=== PATIENT | female | born 1990 | race Caucasian/White ===

== ENCOUNTER 2016-08-31 01:42 | Emergency (ER) | payer OTHER ==
[~2016-08-31] VITALS: Ht 162.6 cm; Wt 172.7 kg
[~2016-08-31 01:42] MED LIST: ALBU8HFA IH; ALBU8HFA4 IH; CETI-260 PO; MONT10TA21 PO; OMEP10 PO
[2016-08-31] MEDS ORDERED: TIOT185 IH (01:52)
[2016-08-31] MEDS ORDERED: AUD NEB (01:52)
[2016-08-31] MEDS ORDERED: MOME13HF IH (01:52)
[2016-08-31] MEDS ORDERED: ALBUTEROL SULFATE 2.5 MG/0.5 ML NEB SOLUTION NEB ONE (03:15)
[2016-08-31] MEDS ORDERED: LORazepam 2 MG TABLET PO ONE (03:15)
[2016-08-31] MEDS ORDERED: IPRATROPIUM BROMIDE 0.5 MG/2.5 ML NEB SOLUTION NEB ONE (03:15)
[2016-08-31 03:26] VITALS: BP 140/85
== END 2016-08-31 03:50 | disposition home or self-care (01) ==
LOC: EMS 01:43
DX: J45.909 Unspecified asthma, uncomplicated (principal); F41.9 Anxiety disorder, unspecified
CPT/HCPCS: 94640; 99283; J7613

== ENCOUNTER 2016-12-04 06:50 | Emergency (ER) | payer OTHER ==
[~2016-12-04] VITALS: Ht 162.6 cm; Wt 172.7 kg
[~2016-12-04 06:50] MED LIST changes: -ALBU8HFA IH; +AUD NEB; +MOME13HF IH; +TIOT185 IH
[2016-12-04 07:06] VITALS: BP 128/83
== END 2016-12-04 07:32 | disposition home or self-care (01) ==
LOC: EMS 06:51
DX: J45.909 Unspecified asthma, uncomplicated (principal); H66.91 Otitis media, unspecified, right ear
CPT/HCPCS: 99283

== ENCOUNTER 2016-12-06 01:21 | Emergency (ER) | payer OTHER ==
[~2016-12-06] VITALS: Ht 162.6 cm; Wt 172.0 kg
[2016-12-06] MEDS ORDERED: IPRATROPIUM BROMIDE 0.5 MG/2.5 ML NEB SOLUTION NEB ONE ×2 (01:30→02:00)
[2016-12-06] MEDS ORDERED: AMOX500T2 PO (01:30)
[2016-12-06] MEDS ORDERED: ALBUTEROL SULFATE 2.5 MG/0.5 ML NEB SOLUTION NEB ONE (01:30)
[2016-12-06] MEDS ORDERED: ALBUTEROL SULFATE 5 MG/ML 20 ML NEB SOLN [BULK] NEB ONE (02:00)
[2016-12-06] MEDS ORDERED: MethylPREDNISolone SOD SUCC 125 MG/2 ML VIAL IM ONE (02:00)
[2016-12-06] MEDS ORDERED: ACETAMINOPHEN 500 MG TABLET PO ONE (02:00)
[2016-12-06] MEDS ORDERED: 0.9% SODIUM CHLORIDE 5 ML NEB SOLUTION NEB ONE (02:43)
[2016-12-06] MEDS ORDERED: ACETAMINOPHEN/CODEINE 300-30 MG TABLET PO ONE (02:45)
[2016-12-06] MEDS ORDERED: IBUPROFEN 600 MG TABLET PO ONE (02:45)
[2016-12-06] MEDS ORDERED: HYDROCODONE/ACETAMINOPHEN 5-325 MG TABLET PO ONE (03:00)
[2016-12-06 03:44] VITALS: BP 143/77
== END 2016-12-06 04:16 | disposition home or self-care (01) ==
LOC: EMS 01:22
DX: J45.901 Unspecified asthma with (acute) exacerbation (principal); J06.9 Acute upper respiratory infection, unspecified; H66.91 Otitis media, unspecified, right ear
CPT/HCPCS: 94644; 96372; 99285; J2930; J7611; J7613; 94640

== ENCOUNTER 2017-02-04 03:00 | Emergency (ER) | payer OTHER ==
[~2017-02-04] VITALS: Ht 162.6 cm; Wt 172.7 kg
[~2017-02-04 03:00] MED LIST changes: +AMOX500T2 PO
[2017-02-04] MEDS ORDERED: ALBUTEROL SULFATE 2.5 MG/0.5 ML NEB SOLUTION NEB ONE ×2 (03:45→03:52)
[2017-02-04] MEDS ORDERED: IPRATROPIUM BROMIDE 0.5 MG/2.5 ML NEB SOLUTION NEB ONE ×2 (03:45→03:52)
[2017-02-04 04:55] LABS: APPEARANCE,URINE CLEAR (CLEAR); GLUCOSE, URINE (UA) NEGATIVE (NEGATIVE); KETONES,URINE NEGATIVE (NEGATIVE); LEUKOCYTE ESTERASE ,URINE NEGATIVE (NEGATIVE); OCCULT BLOOD,URINE NEGATIVE (NEGATIVE); PH,URINE 5.5 (5.0-8.0); PROTEIN,URINE NEGATIVE (NEGATIVE)
[2017-02-04 05:00] LABS: ADD UA MICROSCOPIC NO
[2017-02-04] MEDS ORDERED: DEXAMETHASONE SOD PHOS 4 MG/ML 5 ML VIAL IM ONE (05:15)
[2017-02-04 05:38] VITALS: BP 126/91
== END 2017-02-04 06:34 | disposition home or self-care (01) ==
LOC: EMS 03:01
DX: J45.909 Unspecified asthma, uncomplicated (principal); G43.909 Migraine, unspecified, not intractable, without status migrainosus
CPT/HCPCS: 71010; 73630; 81003; 84703; 94640; 96372; 99285; J1100; J7613; 99284

== ENCOUNTER 2017-02-15 22:47 | Emergency (ER) | payer OTHER ==
[~2017-02-15] VITALS: Ht 162.6 cm; Wt 177.3 kg
[~2017-02-15 22:47] MED LIST changes: -AMOX500T2 PO
[2017-02-15] MEDS ORDERED: ALBUTEROL SULFATE 2.5 MG/0.5 ML NEB SOLUTION NEB ONE (23:30)
[2017-02-15] MEDS ORDERED: IPRATROPIUM BROMIDE 0.5 MG/2.5 ML NEB SOLUTION NEB ONE (23:30)
[2017-02-16] MEDS ORDERED: AMOX TR/POT CLAV 875 MG/125 MG TABLET PO ONE (00:30)
[2017-02-16 00:32] VITALS: BP 151/85
[2017-02-16] MEDS ORDERED: ONDANSETRON HCL 4 MG TABLET PO ONE (00:45)
== END 2017-02-16 00:58 | disposition home or self-care (01) ==
LOC: EMS 22:48
DX: J45.901 Unspecified asthma with (acute) exacerbation (principal); J32.9 Chronic sinusitis, unspecified; G43.909 Migraine, unspecified, not intractable, without status migrainosus
CPT/HCPCS: 94640; 99283; J7613; Q0162

== ENCOUNTER 2017-08-22 07:04 | Emergency (ER) | payer OTHER ==
[~2017-08-22] VITALS: Ht 162.6 cm; Wt 160.4 kg
[~2017-08-22 07:04] MED LIST changes: -CETI-260 PO; +CETI-290 PO
[2017-08-22] MEDS ORDERED: ALBUTEROL SULFATE 5 MG/ML 20 ML NEB SOLN [BULK] NEB ONE (07:45)
[2017-08-22] MEDS ORDERED: IPRATROPIUM BROMIDE 0.5 MG/2.5 ML NEB SOLUTION NEB ONE (07:45)
[2017-08-22] MEDS ORDERED: PredniSONE 20 MG TABLET PO ONE (07:45)
[2017-08-22] MEDS ORDERED: ONDANSETRON HCL 4 MG TABLET PO ONE (07:45)
[2017-08-22 09:40] VITALS: BP 144/71
== END 2017-08-22 10:05 | disposition home or self-care (01) ==
LOC: EMS 07:06
DX: J45.909 Unspecified asthma, uncomplicated (principal); K21.9 Gastro-esophageal reflux disease without esophagitis
CPT/HCPCS: 71045; 94644; 99285; J7512; J7611; Q0162